=== PATIENT | male | born 1990 | race African-American/Black ===

== ENCOUNTER 2017-12-22 13:54 | Emergency (ER) | payer OTHER ==
[~2017-12-22] VITALS: Ht 190.5 cm; Wt 63.5 kg
[~2017-12-22 13:54] MED LIST: CYCLOBENZAPRINE5 M2 PO; FIORICET 50-301 EACH PO; PEPCID40 MG PO; PERCOCET 325 MG1 TA2 PO; ZOFRAN 4 MG TABL4 MG PO
[2017-12-22 17:02] VITALS: BP 116/75
[2017-12-22] MEDS ORDERED: KEFLEX500 M1 PO (17:09)
--- NOTE | 2017-12-22 17:09 | ED ANKLE/FOOT INJURY COMPLAINT ---
History of Present Illness General Chief Complaint: Foot or Ankle Injury Stated Complaint: RIPPED 5TH TOE NAIL OFF X 2 DAYS AGO Source: patient Exam Limitations: no limitations Vital Signs & Intake/Output Vital Signs & Intake/Output Vital Signs Date Time Temp Pulse Resp B/P B/P Pulse O2 O2 Flow FiO2 Mean Ox Delivery Rate 12/22 1711 Room Air 12/22 1702 98.2 80 18 116/75 100 Room Air 12/22 1439 98.9 72 18 112/68 98 Room Air Allergies Coded Allergies: NO KNOWN ALLERGIES (06/06/13) Reconcile Medications Cephalexin (Keflex) 500 MG CAPSULE 1 CAP PO TID cellulitis Triage Note: 27M REPORTS HE RIPPED HIS LEFT PINKY TOENAIL OFF AND "I CANT WORK." WORKS AT [employer] AND STATES HE CANT WORK DUE TO THE PAIN. HAS NOT COVERED IT WITH A BAND AID OR TAKEN TYLENOL OR MOTRIN. DECLINES OFFER FOR MEDICINE IN TRIAGE. AMBULATES WITH NO ISSUE ISSUE. REQUESTING A WORK NOTE. Triage Nurses Notes Reviewed? yes Occurred: just prior to arrival Duration: day(s): (1), constant, continues in ED Timing: single episode today Severity: mild, moderate Severity Numbers: 8 Pain/Injury Location: Right: 5th toe. Method of Injury: direct blow No Modifying Factors: none HPI: 27-year-old male presents for evaluation of a right fifth toe nail avulsion. Patient states he was at work wishing a machine when the machine hit the wall he walked into the machine causing his left fifth toenail to be removed. There was no direct blow to the toe itself he has no pain with range of motion the pain is coming from the nail bed. He states that the area has become more painful throughout the day. The pain is worse with touching the area he is able to walk without difficulty. He denies numbness or tingling no swelling is not taking any medicine for pain and is not clean the area put a dressing on. No other injuries. (Maxi Morgan) Past History Travel History Traveled to [place] past 21 day No Medical History Any Pertinent Medical History? see below for history Neurological: Headaches EENT: NONE Cardiovascular: NONE Respiratory: 1 lung Gastrointestinal: NONE Hepatic: NONE Renal: NONE Musculoskeletal: NONE Psychiatric: NONE Endocrine: NONE Blood Disorders: NONE Other Medical Hx: Premature Surgical History Surgical History: N Psychosocial History Who do you live with Significant Other What is your primary language Turkmen Tobacco Use: Current Daily Use Daily Tobacco Use Amount/Type: => 5 Cigarettes daily ETOH Use: occasional use Illicit Drug Use: marijuana Family History Family History, If Any: FATHER Relation not specified for: FH: diabetes mellitus Hx Contributory? No (Maxi Morgan) Review of Systems Review of Systems Constitutional: Reports: no symptoms. EENTM: Reports: no symptoms. Respiratory: Reports: no symptoms. Cardiovascular: Reports: no symptoms. GI: Reports: no symptoms. Genitourinary: Reports: no symptoms. Musculoskeletal: Reports: joint pain. Skin: Reports: no symptoms. Neurological/Psychological: Reports: no symptoms. Hematologic/Endocrine: Reports: no symptoms. Immunologic/Allergic: Reports: no symptoms. All Other Systems: Reviewed and Negative (Maxi Morgan) Physical Exam Physical Exam General Appearance: well developed/nourished, no apparent distress, alert, awake Head: atraumatic, normal appearance Eyes: Bilateral: normal appearance, EOMI. Ears, Nose, Throat: hearing grossly normal Neck: normal inspection, supple, full range of motion Cardiovascular/Respiratory: no respiratory distress Leg/Knee/Thigh Left: normal range of motion, normal inspection Leg/Knee/Thigh Right: normal range of motion, normal inspection Ankle Left: normal inspection, normal range of motion Ankle Right: normal inspection, normal range of motion Foot Left: normal inspection, normal range of motion Foot Right: nail injury, The left fifth toe nail has been avulsed. There is no bony point tenderness full range of motion is intact. Mild erythema around the nail folds. No discharge patient is able to walk without difficulty neurovascular supply intact Neuro/Vascular: normal motor function, normal sensation Tendon: normal tendon function Psychiatric: awake, alert, oriented x 3 Skin: intact, normal color, warm/dry (Maxi Morgan) Progress Differential Diagnosis: cellulitis, fracture, dislocation, sprain, contusion Plan of Care: Orders Procedure Date/time Status Durable Medical Equipment 12/22 1716 Active Patient seen and evaluated. He is here with a right fifth toenail avulsion. He is able to walk without difficulty there is no bony point tenderness to suggest fracture. Considered getting an x-ray but patient states she does not want to wait longer he does not think based on the mechanism of injury that it is going to be fractured. Does not appear to be any swelling or bruising full range of motion is intact without pain. There is clean with Betadine and bacitracin sterile dressing applied. Rest ice elevation compression. Tylenol and ibuprofen. He was covered with cephalexin to prevent infection. Follow-up with primary care doctor/ice crusher for recheck. Patient agrees the plan (Maxi Morgan) Departure Departure Disposition: HOME OR SELF CARE Condition: Stable Clinical Impression Primary Impression: Nail avulsion, toe Qualifiers: Encounter type: initial encounter Qualified Code: S91.209A - Unspecified open wound of unspecified toe(s) with damage to nail, initial encounter Referrals: Patient Has No Primary Care Dr (PCP/Family) Additional Instructions: Rest, avoid excessive weightbearing and walking. Apply bacitracin and change dressing once daily. Take cephalexin as directed for the full course. Tylenol ibuprofen for pain. [place] for signs of infection like redness swelling discharge or pain. Make a follow-up with Dr. Law foot doctor for a in a few days' monitor symptoms return with any concerns. Departure Forms: Customer Survey General Discharge Information Prescriptions: Current Visit Scripts Cephalexin (Keflex) 1 CAP PO TID #21 CAP (Maxi Morgan) PA/BUTTON SEWING MACHINE OPERATOR Co-Sign Statement Statement: ED Attending supervision documentation- [] I saw and evaluated the patient. I have also reviewed all the pertinent lab results and diagnostic results. I agree with the findings and the plan of care as documented in the PA's/BUTTON SEWING MACHINE OPERATOR's documentation. [x] I have reviewed the ED Record and agree with the PA's/BUTTON SEWING MACHINE OPERATOR's documentation. [] Additions or exceptions (if any) to the PAs/BUTTON SEWING MACHINE OPERATOR's note and plan are summarized below: [] (Tunde Kaplan DO
== END 2017-12-22 17:35 ==
LOC: ERH 13:54
DX: S91.214A Laceration without foreign body of right lesser toe(s) with damage to nail, initial encounter (principal); W23.0XXA Caught, crushed, jammed, or pinched between moving objects, initial encounter; Y92.9 Unspecified place or not applicable; Y93.89 Activity, other specified